=== PATIENT | female | born 1945 | race Caucasian/White ===

== ENCOUNTER → 2017-05-29 | Outpatient (CLI) | payer MEDICARE | LOC: CFH 14:48 | PROVIDERS: ATTEND Nurse Practitioner Primary Care | DX: M25.512 Pain in left shoulder (principal); M25.511 Pain in right shoulder; R53.83 Other fatigue; E78.2 Mixed hyperlipidemia; R79.9 Abnormal finding of blood chemistry, unspecified; H40.9 Unspecified glaucoma; M85.9 Disorder of bone density and structure, unspecified; F06.31 Mood disorder due to known physiological condition with depressive features; R01.1 Cardiac murmur, unspecified; E55.9 Vitamin D deficiency, unspecified; Z79.899 Other long term (current) drug therapy ==